=== PATIENT | male | born 1960 | race Caucasian/White ===

== ENCOUNTER → 2024-03-29 | Outpatient (CLI) | payer BC, MEDICARE, SELFPAY ==
[2024-03-29 16:34] LABS: Collection Type, Urine Clean Catch; Squamous Epithelial Cell,Urine 0 /hpf (0-5)
[2024-03-29 16:38] LABS: Basophils % (Auto) 0 % (0-2.5); Eosinophils # (Auto) 0.1 Thou/mm3 (0.0-0.5); Eosinophils % (Auto) 2 % (0-10); Hematocrit 39.4 % (41.0-53.0); Hemoglobin 13.6 g/dL (13.5-16.0); Immature Granulocytes % (Auto) 0 % (0-0); Immature Granulocytes Auto 0.01 Thou/mm3 (0.00-0.00); Lymphocytes # (Auto) 1.9 Thou/mm3 (1.0-4.8); Lymphocytes % (Auto) 30 % (10-50); Mean Corpuscular HGB Conc 34.5 g/dl (31.0-37.0); Mean Corpuscular Hemoglobin 31.1 pg (25.0-35.0); Mean Corpuscular Volume 90 fL (80-100); Monocytes # (Auto) 0.4 Thou/mm3 (0.0-0.8); Monocytes % (Auto) 7 % (0-12); Neutrophils # (Auto) 3.9 Thou/mm3 (1.8-7.7); Neutrophils % (Auto) 61 % (37-80); Nucleated Red Blood Cell % 0 /100 WBC (0); Platelet Count 141 Thou/mm3 (140-440); RDW Standard Deviation 46.6 fL (35.1-43.9); Red Blood Count 4.37 Miln/mm3 (4.50-5.90); White Blood Count 6.4 Thou/mm3 (3.8-10.6)
[2024-03-29 16:49] LABS: Glucose Estimated Average 137 mg/dL (80-131); Hemoglobin A1C 6.4 % Hgb (4.8-6.0)
[2024-03-29 17:16] LABS: Alanine Aminotransferase 18 U/L (10-49); Albumin, Serum 4.7 gm/dL (3.4-4.8); Albumin/Globulin Ratio 3.1 (1.2-2.2); Alkaline Phosphatase 65 U/L (46-116); Anion Gap 8 (7-16); Aspartate Amino Transferase < 8 U/L (0-34); BUN/Creatinine Ratio 14 Ratio (12-20); Bilirubin,Total 0.6 mg/dL (0.3-1.2); Blood Urea Nitrogen 14 mg/dL (9-23); Calcium 9.8 mg/dL (8.3-10.6); Calcium (Corrected) 9.8 mg/dL (8.5-10.1); Carbon Dioxide 32.5 mMol/L (20.0-31.0); Cardiac Risk Estimate 2.9 RATIO (4.0-6.7); Chloride 99 mMol/L (98-107); Cholesterol 100 mg/dL (132-200); Free T4 (Free Thyroxine) 1.56 ng/dL (0.89-1.76); Globulin 1.5 gm/dL (2.3-3.5); Glucose 150 mg/dL (74-106); HDL Cholesterol 34 mg/dL (40-60); LDL Cholesterol,Calculated 31 mg/dL (0-130); Osmolality,Calculated 281 (275-295); Sodium 139 mMol/L (136-145); Thyroid Stimulating Hormone 0.77 uIU/mL (0.55-4.78); Total Protein 6.2 gm/dL (5.7-8.2); Triglycerides 176 mg/dL (30-150); eGFR > 60 See Note
[2024-03-29 17:50] LABS: Bilirubin,Urine Negative (Negative); Blood,Urine Negative (Negative); Clarity,Urine Clear (Clear/Hazy); Color,Urine Lt-Yellow (Lt Yel-Yel); Glucose, Urine Negative (Negative); Ketones,Urine Negative (Negative); Leukocyte Esterase,Urine Negative (Negative); Nitrite,Urine Negative (Negative); Protein,Urine Negative (Neg - Trace); RBC,Urine 2 /hpf (0-3); Specific Gravity,Urine 1.014 (1.001-1.035); Urobilinogen,Urine Negative mg/dL (0.0-1.0); WBC,Urine 1 /hpf (0-5)
== END | disposition home or self-care (01) ==
LOC: COPL 15:55
PROVIDERS: PCP Internal Medicine; Referring Provider Internal Medicine; Visit Provider Internal Medicine
DX: E11.9 Type 2 diabetes mellitus without complications (principal); I10 Essential (primary) hypertension; E78.5 Hyperlipidemia, unspecified; E03.9 Hypothyroidism, unspecified
CPT/HCPCS: 36415; 80053; 80061; 81001; 83036; 84439; 84443; 85025

== ENCOUNTER → 2024-10-19 | Outpatient (CLI) | payer MEDICARE, BC, SELFPAY ==
[2024-10-19 17:07] LABS: Collection Type, Urine Clean Catch
[2024-10-19 17:30] LABS: Basophils # (Auto) 0.0 Thou/mm3 (0.0-0.2); Basophils % (Auto) 0 % (0-2.5); Eosinophils # (Auto) 0.1 Thou/mm3 (0.0-0.5); Eosinophils % (Auto) 1 % (0-10); Hematocrit 39.4 % (41.0-53.0); Hemoglobin 14.0 g/dL (13.5-16.0); Immature Granulocytes Auto 0.01 Thou/mm3 (0.00-0.00); Lymphocytes # (Auto) 1.8 Thou/mm3 (1.0-4.8); Lymphocytes % (Auto) 27 % (10-50); Mean Corpuscular HGB Conc 35.5 g/dl (31.0-37.0); Mean Corpuscular Hemoglobin 30.4 pg (25.0-35.0); Mean Corpuscular Volume 86 fL (80-100); Monocytes # (Auto) 0.4 Thou/mm3 (0.0-0.8); Monocytes % (Auto) 7 % (0-12); Neutrophils # (Auto) 4.2 Thou/mm3 (1.8-7.7); Neutrophils % (Auto) 64 % (37-80); Nucleated Red Blood Cell # 0.00 Thou/mm3 (0.00-0.00); Nucleated Red Blood Cell % 0 /100 WBC (0); Platelet Count 161 Thou/mm3 (140-440); RDW Standard Deviation 44.9 fL (35.1-43.9); Red Blood Count 4.61 Miln/mm3 (4.50-5.90); White Blood Count 6.5 Thou/mm3 (3.8-10.6)
[2024-10-19 17:34] LABS: Bilirubin,Urine Negative (Negative); Blood,Urine Trace (Negative); Clarity,Urine Clear (Clear/Hazy); Color,Urine Yellow (Lt Yel-Yel); Glucose, Urine Negative (Negative); Ketones,Urine Negative (Negative); Leukocyte Esterase,Urine Negative (Negative); Nitrite,Urine Negative (Negative); PH,Urine 5.5 (5.0-7.0); Protein,Urine Trace (Neg - Trace); RBC,Urine 3 /hpf (0-3); Specific Gravity,Urine 1.027 (1.001-1.035); Squamous Epithelial Cell,Urine 1 /hpf (0-5); Urobilinogen,Urine Negative mg/dL (0.0-1.0); WBC,Urine 2 /hpf (0-5)
[2024-10-19 17:44] LABS: Creatinine MALB Rnd Ur > 245 mg/dL (30-125); Microalbumin Creat Ratio 3 mg/gCrea (<30); Microalbumin, Random Urine 8 mg/L (0-300)
[2024-10-19 17:48] LABS: Glucose Estimated Average 120 mg/dL (80-131); Hemoglobin A1C 5.8 % Hgb (4.8-6.0); Prostate Specific Antigen 0.82 ng/mL (0-4.00)
[2024-10-19 17:52] LABS: Alanine Aminotransferase 15 U/L (10-49); Albumin, Serum 4.5 gm/dL (3.4-4.8); Albumin/Globulin Ratio 2.3 (1.2-2.2); Alkaline Phosphatase 77 U/L (46-116); Anion Gap 7 (7-16); Aspartate Amino Transferase 17 U/L (0-34); BUN/Creatinine Ratio 10 Ratio (12-20); Bilirubin,Total 1.0 mg/dL (0.3-1.2); Blood Urea Nitrogen 10 mg/dL (9-23); Calcium 9.7 mg/dL (8.3-10.6); Calcium (Corrected) 9.7 mg/dL (8.5-10.1); Carbon Dioxide 28.9 mMol/L (20.0-31.0); Cardiac Risk Estimate 2.5 RATIO (4.0-6.7); Chloride 106 mMol/L (98-107); Cholesterol 92 mg/dL (132-200); Creatinine (Component) 1.0 mg/dL (0.6-1.3); Free T4 (Free Thyroxine) 1.66 ng/dL (0.89-1.76); Globulin 2.0 gm/dL (2.3-3.5); Glucose 136 mg/dL (74-106); HDL Cholesterol 37 mg/dL (40-60); LDL Cholesterol,Calculated 33 mg/dL (0-130); Osmolality,Calculated 284 (275-295); Potassium 4.0 mMol/L (3.4-5.1); Sodium 142 mMol/L (136-145); Thyroid Stimulating Hormone 0.73 uIU/mL (0.55-4.78); Total Protein 6.5 gm/dL (5.7-8.2); Triglycerides 112 mg/dL (30-150); Uric Acid 6.3 mg/dL (3.7-9.2); eGFR > 60 See Note
[2024-10-19 17:53] LABS: Vitamin B12 178 pg/mL (211-911); Vitamin D 25 Hydroxy Total 30.1 ng/mL (7.3-40.2)
== END | disposition home or self-care (01) ==
LOC: COPL 16:16
PROVIDERS: PCP Internal Medicine; Referring Provider Urology; Visit Provider Internal Medicine Endocrinology, Diabetes & Metabolism
DX: I10 Essential (primary) hypertension (principal); E78.5 Hyperlipidemia, unspecified; E03.9 Hypothyroidism, unspecified; E04.2 Nontoxic multinodular goiter; E11.65 Type 2 diabetes mellitus with hyperglycemia; N40.1 Benign prostatic hyperplasia with lower urinary tract symptoms
CPT/HCPCS: 36415; 80053; 80061; 81001; 82043; 82306; 82570; 82607; 83036; 84153; 84439; 84443; 84550; 85025

== ENCOUNTER → 2024-11-01 | Outpatient (BNVA) | payer MEDICARE, BC, SELFPAY | END | disposition home or self-care (01) | PROVIDERS: PCP Internal Medicine; Referring Provider Internal Medicine; Visit Provider Urology | DX: N40.1 Benign prostatic hyperplasia with lower urinary tract symptoms (principal); N13.8 Other obstructive and reflux uropathy; N32.81 Overactive bladder; N52.9 Male erectile dysfunction, unspecified; E11.9 Type 2 diabetes mellitus without complications; I10 Essential (primary) hypertension; E66.01 Morbid (severe) obesity due to excess calories; Z68.37 Body mass index [BMI] 37.0-37.9, adult; Z71.3 Dietary counseling and surveillance; Z86.718 Personal history of other venous thrombosis and embolism; K21.9 Gastro-esophageal reflux disease without esophagitis | CPT/HCPCS: 81003; 99212; G0463 ==

== ENCOUNTER 2024-11-15 14:13 | Emergency (ER) | payer MEDICARE, BC, SELFPAY ==
[2024-11-15 14:15] VITALS: BMI 35.9
--- NOTE | 2024-11-15 14:20 | EKG_ITS ---
[facility] Test Date: 2024-11-15 Pat Name: GILDA KEEN Department: Room: - Gender: Male Solutions Analyst: : 1960 Requested By: ED Temporary Provider Order Number: [id number] Reading MD: ED Temporary Provider Measurements Intervals [place] Rate: 80 P: 2 KS: 247 QRS: 24 QRSD: 87 T: 52 QT: 323 QTc: 375 Interpretive Statements SINUS RHYTHM WITH FIRST DEGREE AV BLOCK Compared to ECG 01/31/2018 03:31:10 First degree AV block now present Supraventricular rhythm no longer present ST (T wave) deviation no longer present /store/S0/[id number]
[2024-11-15 14:37] VITALS: BP 113/78; PULSE 81; RESP 18; TEMP 36.4; O2SAT 97
--- NOTE | 2024-11-15 14:44 | XR_ITS ---
Examination: CTA chest with intravenous contrast 2-D reconstructions 3-D reconstructions, vascular Date and time of exam: November 15, 2024, 1717 hours INDICATION: Shortness of breath chest pain today CTDI: vol (mGy) 26.2 DLP: (mGycm) 523 Technique: Multiple axial sections of the thorax have been obtained. 3 mm slice thickness, from below the hemidiaphragms to above the apices of the lungs. Mediastinal and lung density settings have been obtained. 2-D sagittal and coronal reconstructions. 3-D angiographic renderings, 3-D volume renderings, 3D post processing, vascular maximum intensity projections obtained. Contrast administered is 100 cc Isovue 370 intravenous. Low dose protocols were performed. One or more of the following dose reduction techniques were used; automated exposure control, adjustment of the mA and/or KV according to patient size, use of iterative reconstruction technique. Findings: No thoracic aortic aneurysm dilatation Pulmonary artery segments are not enlarged. No pulmonary artery filling defects No peritracheal or tracheobronchial or bronchopulmonary adenopathy 4 mm solid pulmonary nodule left upper lobe image 140 2 mm pulmonary nodule right lower lobe image 214 The visualized liver or splenic lesion Absent gallbladder No pancreatic or adrenal mass The osseous structures are intact IMPRESSION: Negative for pulmonary artery emboli No pneumonia or pulmonary edema Noncalcified pulmonary nodules as above, recommend 6 month follow-up CT chest without contrast
--- NOTE | 2024-11-15 14:47 | PD.EDRME ---
Rapid Medical Screening Exam RME Arrival date/time: 11/15/24 14:13 64-year-old male with a history of hyperlipidemia, congestive heart failure, type 2 diabetes, pulmonary emboli presents to the emergency room with a chief complaint of chest pain and shortness of breath x 3 days I have greeted and performed a focused initial assessment of this patient. A comprehensive ED assessment and evaluation of the patient, analysis of all test results, and completion of the medical decision making process will be conducted by additional ED providers. Chief Complaint: Shortness of Breath/Dyspnea Time Seen by Provider: 11/15/24 14:38 Vital signs: Vital Signs Temperature 97.6 F 11/15/24 14:37 Pulse Rate 81 11/15/24 14:37 Respiratory Rate 18 11/15/24 14:37 Blood Pressure 113/78 11/15/24 14:37 Pulse Oximetry (%) 97 11/15/24 14:37 Oxygen Delivery Method Room Air 11/15/24 14:37 Vital signs reviewed by provider: Yes
[2024-11-15 15:20] LABS: Basophils # (Auto) 0.0 Thou/mm3 (0.0-0.2); Basophils % (Auto) 0 % (0-2.5); Eosinophils # (Auto) 0.1 Thou/mm3 (0.0-0.5); Eosinophils % (Auto) 1 % (0-10); Hematocrit 39.7 % (41.0-53.0); Hemoglobin 13.5 g/dL (13.5-16.0); Immature Granulocytes Auto 0.04 Thou/mm3 (0.00-0.00); Lymphocytes # (Auto) 2.3 Thou/mm3 (1.0-4.8); Lymphocytes % (Auto) 26 % (10-50); Mean Corpuscular HGB Conc 34.0 g/dl (31.0-37.0); Mean Corpuscular Hemoglobin 30.1 pg (25.0-35.0); Mean Corpuscular Volume 88 fL (80-100); Monocytes # (Auto) 0.6 Thou/mm3 (0.0-0.8); Monocytes % (Auto) 7 % (0-12); Neutrophils # (Auto) 5.8 Thou/mm3 (1.8-7.7); Neutrophils % (Auto) 65 % (37-80); Nucleated Red Blood Cell # 0.00 Thou/mm3 (0.00-0.00); Nucleated Red Blood Cell % 0 /100 WBC (0); Platelet Count 215 Thou/mm3 (140-440); RDW Standard Deviation 47.3 fL (35.1-43.9); Red Blood Count 4.49 Miln/mm3 (4.50-5.90); White Blood Count 8.9 Thou/mm3 (3.8-10.6)
[2024-11-15 15:37] LABS: INR 1.0 (0.9-1.3); Partial Thromboplastin Time 28.9 Seconds (22.0-36.0); Prothrombin Time 11.4 Seconds (9.0-12.2)
[2024-11-15 15:38] LABS: B-Type Natriuretic Peptide < 20 pg/mL (0-100)
[2024-11-15 15:40] LABS: Alanine Aminotransferase 19 U/L (10-49); Albumin, Serum 4.7 gm/dL (3.4-4.8); Albumin/Globulin Ratio 2.2 (1.2-2.2); Alkaline Phosphatase 80 U/L (46-116); Anion Gap 12 (7-16); Aspartate Amino Transferase 17 U/L (0-34); BUN/Creatinine Ratio 12 Ratio (12-20); Bilirubin,Total 0.6 mg/dL (0.3-1.2); Blood Urea Nitrogen 12 mg/dL (9-23); Calcium 10.6 mg/dL (8.3-10.6); Calcium (Corrected) 10.6 mg/dL (8.5-10.1); Carbon Dioxide 25.6 mMol/L (20.0-31.0); Chloride 101 mMol/L (98-107); Creatinine (Component) 1.0 mg/dL (0.6-1.3); Estimated Creatinine Clearance 97.3 mL/min (>60); Globulin 2.1 gm/dL (2.3-3.5); Glucose 121 mg/dL (74-106); Osmolality,Calculated 278 (275-295); Potassium 4.1 mMol/L (3.4-5.1); Sodium 139 mMol/L (136-145); Total Protein 6.8 gm/dL (5.7-8.2); Troponin I < 0.002 ng/mL (0.0-0.045); eGFR > 60 See Note
[2024-11-15 16:31] LABS: Collection Type, Urine Clean Catch; RBC,Urine 0 /hpf (0-3)
--- NOTE | 2024-11-15 16:48 | XR_ITS ---
Examination: CT brain head without contrast. 2-D sagittal coronal reconstructions Date and time of exam:November 07, 2024 at 1711 hours Comparison February 28, 2020 INDICATIONS: Onset headache dizziness and difficulty with balance today CTDI: vol (mGy):58.4 DLP: (mGycm):1156 Technique: Multiple CT axial sections of the brain have been obtained, 5 mm slice thickness. Contrast has not been administered. 2-D sagittal, coronal reconstructions have been obtained Low dose protocols were performed. One or more of the following dose reduction techniques were used; automated exposure control, adjustment of the mA and/or KV according to patient size, use of iterative reconstruction technique. Findings: No significant ventricular enlargement. Intra-axial or extra-axial hemorrhage density is not seen. No mass effect or midline shift Basal cisterns are not remarkable. Fourth ventricle is midline. Cranial vault intact. Impression: Negative for acute hemorrhage, mass effect or midline shift If symptoms persist, consider brain MRI follow-up, stroke protocol
--- NOTE | 2024-11-15 16:51 | PD.EDHA ---
ED Headache RME/HPI General Chief Complaint: Shortness of Breath/Dyspnea Stated Complaint: SOB, CHEST PAIN, HEAD PRESSURE Time Seen by Provider: 11/15/24 14:38 Arrival date/time: 11/15/24 14:13 RME / HPI RME / HPI Narrative: 11/15/24 14:13 64-year-old male with a history of hyperlipidemia, congestive heart failure, type 2 diabetes, pulmonary emboli presents to the emergency room with a chief complaint of chest pain and shortness of breath x 3 days I have greeted and performed a focused initial assessment of this patient. A comprehensive ED assessment and evaluation of the patient, analysis of all test results, and completion of the medical decision making process will be conducted by additional ED providers. DR. DOBBINS MAIN ED EVALUATION: 64-year-old male presents to the Emergency Department accompanied by his with multiple complaints but mainly a headache and bilateral numbness and tingling in bilateral fingers and toes. Onset of symptoms was last night. Patient reports chronic pressure-like headache, worse since last night, with associated numbness and tingling in bilateral fingers and toes, jittery sensation, generalized weakness, dizziness, unsteady gait, and sweating. He also endorses pain behind his right eye. Also, reports a mild productive cough with clear phlegm and chest pain. No fever or chills. No leg swelling. PMHx: Hypertension, diabetes, pulmonary embolism on Xarelto, obstructive sleep apnea, benign prostatic hyperplasia, dyslipidemia, and recent neck surgery on 10/25/2024. Patient has a known history of brain lesions. Social Hx: No tobacco, alcohol, or substance use. Related Data Home Medications ?Medication ?Instructions ?Recorded ?Confirmed metoprolol tartrate 50 mg tablet 50 mg PO BID #0 tabs 04/29/16 11/01/24 apixaban 5 mg tablet (Eliquis) 5 mg PO BID 01/31/18 11/01/24 Held on 03/02/20. Instructions: Resume on 03/13/20. fenofibrate 160 mg tablet 160 mg PO QDAY 05/13/18 11/01/24 metoclopramide HCl 10 mg tablet 10 mg PO TID 06/14/19 11/01/24 insulin glargine 100 unit/mL (3 32 unit subcut BID 02/28/20 11/01/24 mL) subcutaneous pen (Lantus Solostar U-100 Insulin) omeprazole 40 mg capsule,delayed 40 mg PO QDAY 02/28/20 11/01/24 release tamsulosin 0.4 mg capsule (Flomax) 0.8 mg PO QDAY 06/12/23 11/01/24 tirzepatide 7.5 mg/0.5 mL 7.5 mg subcut QWEEK 06/12/23 11/01/24 subcutaneous pen injector (Juliusunrenaro) Previous Rx's ?Medication ?Instructions ?Recorded rosuvastatin 5 mg tablet (Crestor) 10 mg (2 x 5 mg) PO HS #30 tabs 03/02/20 Allergies Allergy/AdvReac Type Severity Reaction Status Date / Time Sulfa (Sulfonamide Allergy Severe RASH, Verified 11/15/24 14:15 Antibiotics) SWELLING IN THROAT dapagliflozin Allergy Verified 11/15/24 14:15 Review of Systems Review of Systems Systems Reviewed: All systems reviewed, normal except as documented Past Medical History Past Medical History CARDIAC: Positive Hypercholesterolemia, Congestive Heart Failure, Deep Vein Thrombosis and Hypertension RESPIRATORY: Positive Asthma and Sleep Apnea GASTROINTESTINAL: Positive Gastrointestinal Disorders and Gastroesophageal Reflux Disease GENITOURINARY: Positive Benign Prostatic Hyperplasia MUSCULOSKELETAL: Positive Carpal Tunnel Syndrome ENDOCRINE: Positive Endocrine Disorders and Diabetes Mellitus Type 2 PSYCHO/SOCIAL: Positive Depression and Anxiety OTHER HISTORY: Positive Chicken Pox, Measles and Mumps Family History FAMILY HISTORY: Positive Family Cancer and Family Anesthesia Reaction Surgical History SURGICAL: Positive Tonsillectomy, Adenoidectomy and Abdominal Surgery OTHER SURGICAL HX: spinal fusion Social History SMOKING STATUS: Never smoker SUBSTANCE USE: does not use ALCOHOL: Never ED Exam Narrative Physical exam: GENERAL APPEARANCE: alert and oriented x 4, well-developed, well-nourished, no acute distress VITALS: All vitals were reviewed and the pulse ox is 97% on room air, which is normal according to my interpretation. HEENT: Normocephalic, atraumatic; pupils equal, round, reactive to light; conjunctival injection; teary eyes; mucous membranes pink, moist; oropharynx clear NECK: Supple LUNGS: CTABL; no wheezes, no rales, no rhonchi HEART: Regular rate, regular rhythm; normal S1, S2; no murmurs ABDOMEN: non distended; normal BS; soft, no tenderness, no guarding, no rebound; no masses, no organomegaly, no hernia BACK: no CVA tenderness EXTREMITIES: atraumatic; no edema NEUROLOGIC: awake; alert and oriented x4; cranial nerves II-XII grossly intact; no focal sensory or motor deficits; FROM of all 4 extremities with symmetrical strength. 5/5. PSYCHIATRIC: appropriate mood and affect SKIN: warm, dry, normal color; no rashes Course Course Course Narrative: IOP OD 20, 21 OS 30, 32 Quality Measures none Orders Category Date Time Status CT Screening NOW Care 11/15/24 14:45 Active EKG (ED ONLY) *Do not use* NOW Care 11/15/24 14:20 Completed Visual Acuity NOW Care 11/15/24 16:[address] angio chest Stat Exams 11/15/24 14:[address] head/brain wo con Stat Exams 11/15/24 16:48 Completed EKG (ED Only) Stat Exams 11/15/24 14:20 Draft B-Type Natriuretic Peptide Stat Lab 11/15/24 15:01 Completed CBC Stat Lab 11/15/24 15:01 Completed Comprehensive Metabolic Panel Stat Lab 11/15/24 15:01 Completed Partial Thromboplastin Time Stat Lab 11/15/24 15:01 Completed Prothrombin Time with INR Stat Lab 11/15/24 15:01 Completed Troponin I Stat Lab 11/15/24 15:01 Completed Urinalysis Stat Lab 11/15/24 16:19 Completed Vital Signs Vital signs: Vital Signs Temperature 97.6 F 11/15/24 14:37 Pulse Rate 81 11/15/24 14:37 Respiratory Rate 18 11/15/24 14:37 Blood Pressure 113/78 11/15/24 14:37 Pulse Oximetry (%) 97 11/15/24 14:37 Oxygen Delivery Method Room Air 11/15/24 14:37 Headache MDM Narrative MDM Narrative:: IAmalia am scribing for and in the presence of Dr. Dobbins. Patient data External records reviewed:: [facility] previous records Clinical information provided by:: patient and spouse Social determinants that could affect healthcare access:: none Patient has the following chronic illnesses:: Hypertension, diabetes, pulmonary embolism on Xarelto, obstructive sleep apnea, benign prostatic hyperplasia, dyslipidemia, and recent neck surgery on 10/25/2024. Patient has a known history of brain lesions. How is presenting disease/condition affected by chronic disease/condition?: exacerbated by Evaluation data The following diagnostics were reviewed and interpreted by me:: lab results, radiology exam(s) and EKG tracing(s) Lab and/or radiology exams considered but not ordered:: none Interpretation Summary: My interpretation: EKG performed at 1440 hours, sinus rhythm with first degree AV block, rate 80, mild diffuse flattening ST segments, no acute ischemic changes Procedure(s): CT head/brain wo con Accession Number(s): [id number] cc: Ace Mckinney MD; Martina Dobbins MD; Matteo Holliday MD~ Examination: CT brain head without contrast. 2-D sagittal coronal reconstructions Date and time of exam:November 07, 2024 at 1711 hours Comparison February 28, 2020 INDICATIONS: Onset headache dizziness and difficulty with balance today CTDI: vol (mGy):58.4 DLP: (mGycm):1156 Technique: Multiple CT axial sections of the brain have been obtained, 5 mm slice thickness. Contrast has not been administered. 2-D sagittal, coronal reconstructions have been obtained Low dose protocols were performed. One or more of the following dose reduction techniques were used; automated exposure control, adjustment of the mA and/or KV according to patient size, use of iterative reconstruction technique. Findings: No significant ventricular enlargement. Intra-axial or extra-axial hemorrhage density is not seen. No mass effect or midline shift Basal cisterns are not remarkable. Fourth ventricle is midline. Cranial vault intact. Impression: Negative for acute hemorrhage, mass effect or midline shift If symptoms persist, consider brain MRI follow-up, stroke protocol Dictated By: Ace Mckinney MD Procedure(s): CT angio chest Accession Number(s): [id number] cc: Juan Jose Rader; Ace Mckinney MD; Matteo Holliday MD~ Examination: CTA chest with intravenous contrast 2-D reconstructions 3-D reconstructions, vascular Date and time of exam: November 15, 2024, 1717 hours INDICATION: Shortness of breath chest pain today CTDI: vol (mGy) 26.2 DLP: (mGycm) 523 Technique: Multiple axial sections of the thorax have been obtained. 3 mm slice thickness, from below the hemidiaphragms to above the apices of the lungs. Mediastinal and lung density settings have been obtained. 2-D sagittal and coronal reconstructions. 3-D angiographic renderings, 3-D volume renderings, 3D post processing, vascular maximum intensity projections obtained. Contrast administered is 100 cc Isovue 370 intravenous. Low dose protocols were performed. One or more of the following dose reduction techniques were used; automated exposure control, adjustment of the mA and/or KV according to patient size, use of iterative reconstruction technique. Findings: No thoracic aortic aneurysm dilatation Pulmonary artery segments are not enlarged. No pulmonary artery filling defects No peritracheal or tracheobronchial or bronchopulmonary adenopathy 4 mm solid pulmonary nodule left upper lobe image 140 2 mm pulmonary nodule right lower lobe image 214 The visualized liver or splenic lesion Absent gallbladder No pancreatic or adrenal mass The osseous structures are intact IMPRESSION: Negative for pulmonary artery emboli No pneumonia or pulmonary edema Noncalcified pulmonary nodules as above, recommend 6 month follow-up CT chest without contrast Dictated By: Ace Mckinney MD Medications / Prescriptions Medications or Prescriptions considered but not ordered:: none Medication administrations:: see above if any Consultations Consultation(s) initiated? (list below): No Diagnosis Differential diagnosis headache: migraine, tension headache, headache and other (stroke, hemorrhage, peripheral neuropathy) Most likely diagnosis given after review of the tests above:: Dyspnea Headache Admission Indicated Admission indicated?: not indicated Explain why admission is indicated or not indicated:: No final disposition plan at this time, still pending diagnostic tests. Patient signout to the shift mgr provider. Admission Request Was there a request for admission?: No Disposition Plan Disposition Plan: other (specify) (Patient signed out to Dr. Ojeda.) Discharge Plan Prescriptions/Referrals Prescriptions/Med Rec: No Action Mounjaro 7.5 mg/0.5 mL pen injector 7.5 mg subcut QWEEK metoprolol tartrate 50 MG tablet 50 mg PO BID Qty: 0 Eliquis 5 mg Tablet 5 mg PO BID metoclopramide HCl 10 mg tablet 10 mg PO TID Patient Comments: TAKE 1 TABLET BY MOUTH EVERY DAY fenofibrate 160 mg Tablet 160 mg PO QDAY tamsulosin [Flomax] 0.4 mg capsule 0.8 mg PO QDAY omeprazole 40 mg capsule,delayed release(DR/EC) 40 mg PO QDAY Lantus Solostar U-100 Insulin 100 unit/mL (3 mL) insulin pen 32 unit SUBCUT BID Patient Comments: INJECT 32 UNITS UNDER THE SKIN BID. rosuvastatin [Crestor] 5 mg Tablet 10 mg PO HS Qty: 30 0RF Referrals: Matteo Holliday MD [Primary Care Provider] - In 1 week Problem List Clinical Impression: Dyspnea, Headache Patient/Caregiver Discharge Instructions Print Language: Sammarinese
[2024-11-15 17:52] LABS: Bilirubin,Urine Negative (Negative); Blood,Urine Negative (Negative); Clarity,Urine Clear (Clear/Hazy); Color,Urine Colorless (Lt Yel-Yel); Glucose, Urine Negative (Negative); Ketones,Urine Negative (Negative); Leukocyte Esterase,Urine Negative (Negative); Nitrite,Urine Negative (Negative); PH,Urine 6.5 (5.0-7.0); Protein,Urine Negative (Neg - Trace); Specific Gravity,Urine 1.009 (1.001-1.035); Squamous Epithelial Cell,Urine < 1 /hpf (0-5); Urobilinogen,Urine Negative mg/dL (0.0-1.0); WBC,Urine < 1 /hpf (0-5)
[2024-11-15 18:37] VITALS: BP 111/74; PULSE 82; RESP 16; TEMP 36.7; O2SAT 95
--- NOTE | 2024-11-15 18:39 | PD.EDADDENDU ---
Emergency Room Addendum Addendum Narrative: 1800: Care assumed from Dr. Dobbins (emergency physician). Past medical, surgical, social and family history reviewed. Vitals and home medications reviewed. Results and treatment plan discussed. I will assume the care of the patient at this time and will follow the patient, pending re-evaluation and final disposition. The following addendum documentation note is intended to reflect any pending information, findings, or radiology results not included in the patient?s initial chart by the previous shift tonia. 1839: I have spoken with the patient and discussed today?s findings, in addition to providing specific details for the plan of care. Questions are answered and there is an agreement with the plan. Re-assessment at the time of disposition demonstrates that the patient is in no acute distress. The patient has remained stable throughout the entire ED visit and is without objective evidence for acute process requiring urgent intervention or hospitalization. The patient is stable for discharge; counseling is provided and documented as above, discussed symptomatic treatment and specific conditions for return.
== END 2024-11-15 19:33 | disposition home or self-care (01) ==
PROVIDERS: Nurse Practitioner Family; Emergency Provider Emergency Medicine; PCP Internal Medicine
DX: R06.00 Dyspnea, unspecified (principal); R51.9 Headache, unspecified; R91.8 Other nonspecific abnormal finding of lung field; R42 Dizziness and giddiness; I44.0 Atrioventricular block, first degree; I11.0 Hypertensive heart disease with heart failure; E78.00 Pure hypercholesterolemia, unspecified; I50.9 Heart failure, unspecified; Z86.711 Personal history of pulmonary embolism; Z79.01 Long term (current) use of anticoagulants
CPT/HCPCS: 36415; 70450; 71275; 80053; 81001; 83880; 84484; 85025; 85610; 85730; 93005; 99283; A4649; Q9967

== ENCOUNTER → 2024-12-29 | Outpatient (BNVA) | payer MEDICARE, BC, SELFPAY | END | disposition home or self-care (01) | PROVIDERS: PCP Internal Medicine; Referring Provider Internal Medicine; Visit Provider Student in an Organized Health Care Education/Training Program | DX: N52.9 Male erectile dysfunction, unspecified (principal); Z86.718 Personal history of other venous thrombosis and embolism; Z86.711 Personal history of pulmonary embolism | CPT/HCPCS: 99212; G0463 ==

== ENCOUNTER → 2025-01-06 | Outpatient (BNVA) | payer MEDICARE, BC, SELFPAY | END | disposition home or self-care (01) | PROVIDERS: PCP Internal Medicine; Referring Provider Internal Medicine; Visit Provider Urology | DX: N40.1 Benign prostatic hyperplasia with lower urinary tract symptoms (principal); R39.12 Poor urinary stream; I11.0 Hypertensive heart disease with heart failure; I50.9 Heart failure, unspecified; E78.00 Pure hypercholesterolemia, unspecified; E11.9 Type 2 diabetes mellitus without complications; K21.9 Gastro-esophageal reflux disease without esophagitis; Z86.718 Personal history of other venous thrombosis and embolism; G47.30 Sleep apnea, unspecified | CPT/HCPCS: 51741; 51798 ==

== ENCOUNTER → 2025-02-09 | Outpatient (CLI) | payer MEDICARE, BC, SELFPAY ==
--- NOTE | 2025-02-09 14:48 | EKG_ITS ---
[facility] Test Date: 2025-02-09 Pat Name: GILDA KEEN Department: Room: - Gender: Male Acidity Tester: LISANDRA : 1960 Requested By: Azael Marcelino Order Number: [id number] Reading MD: Azael Marcelino Measurements Intervals [place] Rate: 93 P: 54 TN: 195 QRS: 42 QRSD: 78 T: 49 QT: 317 QTc: 395 Interpretive Statements SINUS RHYTHM Compared to ECG 11/15/2024 14:40:46 First degree AV block no longer present /store/S0/[id number]
[2025-02-09 15:41] LABS: Collection Type, Urine Clean Catch
[2025-02-09 16:39] LABS: Basophils # (Auto) 0.0 Thou/mm3 (0.0-0.2); Basophils % (Auto) 0 % (0-2.5); Eosinophils # (Auto) 0.1 Thou/mm3 (0.0-0.5); Eosinophils % (Auto) 1 % (0-10); Hematocrit 45.1 % (41.0-53.0); Hemoglobin 15.3 g/dL (13.5-16.0); Immature Granulocytes Auto 0.04 Thou/mm3 (0.00-0.00); Lymphocytes # (Auto) 2.0 Thou/mm3 (1.0-4.8); Lymphocytes % (Auto) 22 % (10-50); Mean Corpuscular HGB Conc 33.9 g/dl (31.0-37.0); Mean Corpuscular Hemoglobin 30.2 pg (25.0-35.0); Mean Corpuscular Volume 89 fL (80-100); Monocytes # (Auto) 0.6 Thou/mm3 (0.0-0.8); Monocytes % (Auto) 6 % (0-12); Neutrophils # (Auto) 6.3 Thou/mm3 (1.8-7.7); Neutrophils % (Auto) 70 % (37-80); Nucleated Red Blood Cell # 0.00 Thou/mm3 (0.00-0.00); Nucleated Red Blood Cell % 0 /100 WBC (0); Platelet Count 190 Thou/mm3 (140-440); RDW Standard Deviation 44.2 fL (35.1-43.9); Red Blood Count 5.07 Miln/mm3 (4.50-5.90); White Blood Count 9.0 Thou/mm3 (3.8-10.6)
[2025-02-09 16:49] LABS: Glucose Estimated Average 134 mg/dL (80-131); Hemoglobin A1C 6.3 % Hgb (4.8-6.0); INR 1.0 (0.9-1.3); Partial Thromboplastin Time 27.0 Seconds (22.0-36.0); Prothrombin Time 10.8 Seconds (9.0-12.2)
[2025-02-09 16:53] LABS: Bilirubin,Urine Negative (Negative); Blood,Urine Negative (Negative); Clarity,Urine Clear (Clear/Hazy); Color,Urine Lt-Yellow (Lt Yel-Yel); Culture Indicated,Urine Not Indicated; Glucose, Urine Negative (Negative); Hyaline Casts,Urine < 1 /hpf (0-1); Ketones,Urine Negative (Negative); Leukocyte Esterase,Urine Negative (Negative); Nitrite,Urine Negative (Negative); PH,Urine 5.5 (5.0-7.0); Protein,Urine Negative (Neg - Trace); RBC,Urine 1 /hpf (0-3); Specific Gravity,Urine 1.013 (1.001-1.035); Squamous Epithelial Cell,Urine < 1 /hpf (0-5); Urobilinogen,Urine Negative mg/dL (0.0-1.0); WBC,Urine 1 /hpf (0-5)
[2025-02-09 16:58] LABS: Alanine Aminotransferase 37 U/L (10-49); Albumin, Serum 5.1 gm/dL (3.4-4.8); Albumin/Globulin Ratio 2.8 (1.2-2.2); Alkaline Phosphatase 79 U/L (46-116); Anion Gap 14 (7-16); Aspartate Amino Transferase 28 U/L (0-34); BUN/Creatinine Ratio 11 Ratio (12-20); Bilirubin,Total 1.0 mg/dL (0.3-1.2); Blood Urea Nitrogen 12 mg/dL (9-23); Calcium 10.4 mg/dL (8.3-10.6); Calcium (Corrected) 10.4 mg/dL (8.5-10.1); Carbon Dioxide 25.0 mMol/L (20.0-31.0); Chloride 99 mMol/L (98-107); Creatinine (Component) 1.1 mg/dL (0.6-1.3); Globulin 1.8 gm/dL (2.3-3.5); Glucose 208 mg/dL (74-106); Osmolality,Calculated 281 (275-295); Potassium 3.8 mMol/L (3.4-5.1); Sodium 138 mMol/L (136-145); Total Protein 6.9 gm/dL (5.7-8.2); eGFR > 60 See Note
== END | disposition home or self-care (01) ==
PROVIDERS: PCP Internal Medicine; Referring Provider Student in an Organized Health Care Education/Training Program; Visit Provider Student in an Organized Health Care Education/Training Program
DX: N52.9 Male erectile dysfunction, unspecified (principal)
CPT/HCPCS: 36415; 80053; 81001; 83036; 85025; 85610; 85730; 93005